=== PATIENT | male | born 1960 | race Caucasian/White ===

== ENCOUNTER 2018-07-26 10:32 | Day surgery (SDC) | payer BC ==
[~2018-07-26 10:32] MED LIST: LACTATED RINGER'S 1,000 ML IV*; Metronidazole 500 MG in NS 100 ML IVPB
[2018-07-26] MEDS ORDERED: NEOSTIGMINE 3 MG/3 ML SYRINGE (12:45)
[2018-07-26] MEDS ORDERED: ROCURONIUM 50 MG INJ (12:45)
[2018-07-26] MEDS ORDERED: PROPOFOL 20 ML (12:45)
[2018-07-26] MEDS ORDERED: HALOPERIDOL 5 MG INJ (12:46)
[2018-07-26] MEDS ORDERED: MIDAZOLAM 1 MG/ML 2 ML INJ (12:46)
[2018-07-26] MEDS ORDERED: METOCLOPRAMIDE 10 MG INJ (12:46)
[2018-07-26] MEDS ORDERED: ONDANSETRON 4 MG INJ (12:46)
[2018-07-26] MEDS ORDERED: FENTAnyl 50 MCG/ML VIAL (12:52)
[2018-07-26] MEDS ORDERED: MEPERIDINE 25 MG INJ IV (13:00)
[2018-07-26] MEDS ORDERED: LABETALOL HCL 20MG INJ IV (13:00)
[2018-07-26] MEDS ORDERED: DIPHENHYDRAMINE 50 MG INJ IV (13:00)
[2018-07-26] MEDS ORDERED: HYDROmorphONE 1 MG/5 ML IV SYRINGE IV ×3 (13:00)
[2018-07-26] MEDS ORDERED: ONDANSETRON 4 MG INJ IV (13:00)
[2018-07-26] MEDS ORDERED: hydrALAzine 20 MG INJ IV (13:00)
[2018-07-26] MEDS ORDERED: OXYCODONE/ACETAMINOPHEN (5/325) TAB PO ×2 (13:00)
[2018-07-26] MEDS: BUPIVACAINE 0.25%/EPI (SDV) 10 ML INJ (13:21)
[2018-07-26] MEDS: LIDOCAINE 1% (STERILE-PAK) 30 ML INJ (13:21)
[2018-07-26] MEDS ORDERED: GLYCOPYRROLATE 0.4 MG INJ (13:42)
== END 2018-07-26 15:26 | disposition home or self-care (01) ==
LOC: SDS 10:32
DX: K64.8 Other hemorrhoids (principal)
CPT/HCPCS: 46255; 88304